=== PATIENT | female | born 1930 | race Caucasian/White ===

== ENCOUNTER 2017-12-13 20:24 | Emergency (ER) | payer BC, MEDICAID ==
[2017-12-13] MEDS: traMADol 50 MG TAB PO (22:33)
== END 2017-12-13 22:48 | disposition home or self-care (01) ==
LOC: E/R 20:24
DX: M54.2 Cervicalgia (principal); M54.5 Low back pain; I10 Essential (primary) hypertension
CPT/HCPCS: 99283